=== PATIENT | female | born 1945 | race Caucasian/White ===

== ENCOUNTER → 2018-01-10 09:58 | Outpatient (CLI) | payer MEDICARE, SELFPAY ==
[2018-01-13 11:33] LABS: Total Volume 2100 mL; Urine, Metanephrine 44 mcg/24 h (90-315); Urine, Normetanephrine 355 mcg/24 h (122-676)
[2018-01-14 15:31] LABS: Total Volume: 2100 mL
== END ==
PROVIDERS: PCP Internal Medicine; Visit Provider Internal Medicine
DX: I10 Essential (primary) hypertension (principal)
CPT/HCPCS: 83835; 84585

== ENCOUNTER → 2018-01-12 12:46 | Outpatient (CLI) | payer MEDICARE, SELFPAY ==
--- NOTE | 2018-01-12 | DI.ECHO.S_ITS ---
[facility] +---------+ : : [address] : [address] : : : : [id number] : : : : Phone: [phone]+ Echocardiogram Report + + :Name: LYNN DOLAN Study Date: 01/12/2018 Height: 64 in : :[facility] Exam Location: [facility] Weight: 140 lb : : Gender: Female BSA: 1.7 m2 : :: 1945 Age: 72 yrs BP: 125/85 mmHg: :Reason For Study: Hypertension : :Ordering Physician: Dr. Garcia : :Bernie Performed By: Juju Page : + + Interpretation Summary The ejection fraction is estimated to be 60-65%. Assessment of diastolic parameters indicates a relaxation abnormality of the left ventricle, consistent with normal filling pressures. The left atrium is severely dilated. There is mild mitral regurgitation. Procedure: A two-dimensional transthoracic echocardiogram with color flow and Doppler was performed. The study quality was technically adequate. There is no prior echocardiogram noted for this patient. The patient was in normal sinus rhythm during the exam. The patient had occasional PACs during the exam. Left Ventricle: The left ventricle is normal in size. A false chord is noted (normal variant). The ejection fraction is estimated to be 60-65%. Assessment of diastolic parameters indicates a relaxation abnormality of the left ventricle, consistent with normal filling pressures. Right Ventricle: The right ventricle is normal in size and function. Atria: The left atrium is severely dilated. Right atrial size is normal. There is no Doppler evidence for an interatrial shunt. Mitral Valve: The mitral valve leaflets appear thickened, but open well. There is mild mitral valve prolapse. There is mild mitral regurgitation. The mitral regurgitant jet is posteriorly directed, which is consistent with anterior leaflet pathology. Aortic Valve: The aortic valve is trileaflet. The aortic valve opens well. No aortic regurgitation is present. Tricuspid Valve: The tricuspid valve is normal in structure and function. There is trace tricuspid regurgitation. Pulmonic Valve: The pulmonic valve is not well visualized. Great Vessels: The aortic root is normal size. The ascending aorta is mildly enlarged. The aortic arch is normal in size. The pulmonary artery is not well visualized, but is probably normal size. The IVC is of normal diameter and collapses greater than 50% with a sniff. This suggests a low right atrial pressure of 3 mm Hg. Pericardium/ Pleura There is no pericardial effusion. There is no pleural effusion. MMode/2D Measurements & Calculations LVIDd: 4.9 cm Ao root diam: 3.2 cm LVIDs: 3.3 cm asc Aorta Diam: 3.5 cm FS: 33.6 % Ao Arch Diam (Prox Trans): 2.7 cm EPSS: 0.69 cm IVSd: 0.69 cm LVPWd: 0.61 cm LV raya. diameter/BSA (cm/m^2): 2.9 LV sys. diameter/BSA (cm/m^2): 1.9 LA A2 area: 23.9 cm2 RA long axis: 4.8 cm LA A4 area: 22.1 cm2 RA area: 14.1 cm2 LA length (vol): 5.6 cm RA vol: 35.0 ml LA vol: 80.1 ml RA : 20.8 ml/m2 LA vol index: 47.6 ml/m2 IVC diam: 1.4 cm RVD1 (basal): 3.4 cm Doppler Measurements & Calculations Ao V2 max: 118.7 cm/sec LVOT Max Tang: 75.9 cm/sec Ao V2 mean: 85.8 cm/sec LV V1 max P.3 mmHg Ao max P.6 mmHg LV V1 VTI: 18.2 cm Ao mean P.2 mmHg sev ratio: 0.70 Ao V2 VTI: 26.2 cm MV E max tang: 70.0 cm/sec TR max tang: 228.7 cm/sec MV A max tang: 94.8 cm/sec TR max P.9 mmHg MV E/A: 0.74 PA V2 max: 62.9 cm/sec Med Peak E' Tang: 4.3 cm/sec PA V2 mean: 48.4 cm/sec E/E' med: 16.1 PA mean P.0 mmHg Lat Peak E' Tang: 6.5 cm/sec PA Accel Time: 0.14 sec E/E' lat: 10.8 E/e' average: 13.5 MV dec time: 0.22 sec MV P1/2t: 67.0 msec MV P1/2t max tang: 70.0 cm/sec MVA(P1/2t): 3.3 cm2 Reading Physician:03:51 PM
== END ==
PROVIDERS: PCP Internal Medicine; Visit Provider Internal Medicine
DX: I34.0 Nonrheumatic mitral (valve) insufficiency (principal); I10 Essential (primary) hypertension
CPT/HCPCS: 93306

== ENCOUNTER 2018-01-18 12:55 | Day surgery (SDC) | payer MEDICARE, SELFPAY ==
[2018-01-18] VITALS (7 sets, daily range): BP systolic 93–132; BP diastolic 61–83; PULSE 72–78; RESP 14–18; TEMP 36.1–36.5; O2SAT 93–100; BMI 24.0
[2018-01-18] MEDS: SODIUM CHLORIDE 0.9% 1,000 ML 200 ML IV (13:34)
--- NOTE | 2018-01-18 14:08 | P.HP_ITS ---
History of Present Illness Date Patient Seen: 01/18/18 Time Patient Seen: 14:06 Chief complaint: [id number] Narrative: Nay is a very pleasant 72-year-old lady who presents today for screening colonoscopy. She reports this is her 4th study and she usually has them every 5 years. She has no family history of colon cancer but she has had polyps in the past. She denies any new problems or symptoms related to the function of her GI tract. She reports that she already know she has extensive diverticulosis and that they remind her every time she has a colonoscopy. 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 ) Surgical History Anesthesia (Resolved) History of blepharoplasty (Resolved 1997) History of ear, nose, and throat (ENT) surgery (Resolved 2008) Status post dilation and curettage (Resolved) Status post tubal ligation (Resolved 1977) Family & Social History Family History: Reviewed 01/18/18 by Rox Valencia MD Social History: household members none Tobacco & Substance use: Smoking Status Never smoker Meds Home Medications Medication Instructions Recorded Confirmed Type ASPIRIN (#ASPIR 81) 81 mg PO #0 05/16/12 01/14/18 History VITAMIN D (Vitamin D3) 2,000 unit PO QDAY #0 05/16/12 01/18/18 History zolpidem 5 mg PO HS #0 05/16/12 01/18/18 History amlodipine 5 mg tablet 5 mg PO DAILY 01/14/18 01/18/18 History lorazepam 0.5 mg tablet 0.5 mg BUCCAL ONCE 01/14/18 01/18/18 History Allergies Allergy/AdvReac Type Severity Reaction Status Date / Time lisinopril [LISINOPRIL] Allergy Severe FACE Unverified 01/18/18 13:24 SWELLING Review of Systems Review of Systems All systems reviewed & are unremarkable except as noted in HPI and below Exam Vital Signs (past 8 hours): Vital Signs - 8 hr 3 01/18/18 13:18 Temperature 97.7 F Pulse Rate 77 Respiratory Rate 16 Blood Pressure 132/83 H Pulse Oximetry 96 Pulse Oximetry 96 Oxygen Delivery Method Room Air Narrative Exam Narrative: HEENT: Normocephalic and atraumatic, pupils equal round reactive to light accommodation with anicteric sclera Lungs: Clear to auscultation bilaterally Heart: Regular rate and rhythm Abdomen: Soft, nontender, active bowel sounds Extremities: Warm and well perfused Assessment & Plan Plan: Assessment/Plan Narrative: We have discussed the risks and benefits of colonoscopy and the patient expressed desire to have the procedure
--- NOTE | 2018-01-18 14:09 | SUR.OPER ---
to endo from opd via cart respirations unlabored iv patent positioned per self for procedure
--- NOTE | 2018-01-18 14:32 | SUR.OPER ---
tolerated procedure well
--- NOTE | 2018-01-18 14:33 | PM.OP.1 ---
Operative Date/Time/Diagnoses - Date of procedure: 01/18/18 Time of procedure: 14:33 Pre-op diagnosis: personal history of colon polyps Post-op diagnosis: same Procedure & Clinicians Procedure: colonoscopy to the cecum Same procedure as scheduled: Yes Indications: colonoscopy 5 years ago Surgeon: Rox Valencia Click Yes if Unassisted: Yes Anesthesia Type: Sedation ( Versed 6 mg; fentanyl 250 mcg) Operative Notes Findings: 1. Adequate prep 2. no polyps or mass lesions 3. extensive seo diverticular disease with the most concentrated disease in the descending and sigmoid regions 4. Grade 2 internal hemorrhoids Closure Type: not applicable Specimen(s): none sent Estimated Blood Loss (mL): 0 Procedure in detail: After obtaining informed consent, the patient was brought to the GI suite and placed in the left lateral decubitus position on the examination table. After placement of appropriate monitors, the patient was given incremental doses of Versed and Fentanyl until an appropriate level of sedation was achieved. A time out was held per SCOAP protocol. A digital rectal examination was performed and did not reveal any masses or obstructing lesions. The colonoscope was gently passed into the patient's anus and the entire colon navigated to the level of the cecum with minimal difficulty. Once in the cecum, the scope was withdrawn being sure to go before and beyond all mucosal folds and prominences and get an excellent examination. The findings are noted above. At the level of the rectal vault, the scope was retroflexed and the internal anal canal was examined. The scope was straightened and air aspirated from the colon. The instrument was removed from the patient's body and the procedure was concluded.The patient was allowed to awaken from sedation without difficulty and taken to the post-anesthesia care unit in good condition. Complications: none Condition: stable Disposition: PACU Plan for aftercare: 1. Discharge to home 2. Plan for next colonoscopy in 5 years or as clinically indicated c
[2018-01-18] MEDS: MIDAZOLAM 5 MG/5 ML VIAL 6 MG IV (14:37)
[2018-01-18] MEDS: fentaNYL 250 MCG/5 ML INJ IV (14:37)
== END 2018-01-18 15:30 | disposition home or self-care (01) ==
PROVIDERS: PCP Internal Medicine; Visit Provider Surgery
PROC: 0DJD8ZZ Inspection of Lower Intestinal Tract, Via Natural or Artificial Opening Endoscopic (ICD-10-PCS; CPT 45378; principal; 2018-01-18 14:00)
DX: Z12.11 Encounter for screening for malignant neoplasm of colon (principal); Z86.010 Personal history of colon polyps; K57.30 Diverticulosis of large intestine without perforation or abscess without bleeding; K64.1 Second degree hemorrhoids; I10 Essential (primary) hypertension; E78.5 Hyperlipidemia, unspecified; I48.91 Unspecified atrial fibrillation; F41.9 Anxiety disorder, unspecified
CPT/HCPCS: G0105; 99152; J2250; J3010

== ENCOUNTER → 2020-01-03 09:02 | Outpatient (CLI) | payer MEDICARE, SELFPAY ==
[2020-01-03 09:29] LABS: Aspartate Aminotransferase 31 IU/L (14-36); BUN Creatinine Ratio 22.2 (6-22); Blood Urea Nitrogen 14 mg/dL (7-17); Calcium 9.8 mg/dL (8.4-10.2); Carbon Dioxide 26 mmol/L (22-32); Chloride 105 mmol/L (98-107); Cholesterol 178 mg/dL (140-199); Estimated Glomerular Filt Rate > 60.0 mL/min (>60); Glucose 98 mg/dL (80-110); HDL Cholesterol 86 mg/dL (40-60); HEMOLYSIS < 15 (0-50); LDL Cholesterol Calculated 79 mg/dL (<100); Potassium 4.2 mmol/L (3.4-5.1); Sodium 141 mmol/L (137-145); Triglycerides 65 mg/dL (35-150)
== END ==
PROVIDERS: PCP Internal Medicine; Referring Provider Internal Medicine; Visit Provider Internal Medicine
DX: I10 Essential (primary) hypertension (principal); E78.2 Mixed hyperlipidemia
CPT/HCPCS: 36415; 80048; 80061; 84450

== ENCOUNTER → 2021-02-10 11:08 | Outpatient (CLI) | payer MEDICARE, SELFPAY ==
--- NOTE | 2021-02-10 11:09 | DI.RAD.S_ITS ---
PROCEDURE: XR DEXA AXIAL SKELETON INDICATIONS: Asymptomatic menopausal state COMPARISON: None. FINDINGS: This blank DEXA report has been sent in error by the PACS system. The correct and complete report will be forthcoming in 1-2 days. Thank you for your patience and understanding. Dictated by: Dona Covington MD, PhD on 02/10/2021 at 14:01 Approved by: Dona Covington MD, PhD on 02/10/2021 at 14:02
== END ==
PROVIDERS: PCP Internal Medicine; Referring Provider Internal Medicine; Visit Provider Internal Medicine
DX: M85.88 Other specified disorders of bone density and structure, other site (principal); Z13.820 Encounter for screening for osteoporosis; Z78.0 Asymptomatic menopausal state; Z87.891 Personal history of nicotine dependence; Z82.62 Family history of osteoporosis
CPT/HCPCS: 77080

== ENCOUNTER → 2022-06-01 12:06 | Outpatient (CLI) | payer MEDICARE, SELFPAY ==
[2022-06-01 13:50] LABS: Hematocrit 42.5 % (36-46); Hemoglobin 14.1 g/dL (12.0-16.0); Mean Corpuscular HGB Conc 33.2 % (30-36); Mean Corpuscular Hemoglobin 32.7 PG (26-34); Mean Corpuscular Volume 98.2 fL (80-100); Platelet Count 249 X10^3/uL (150-400); Red Blood Cell Count 4.32 X10^6/uL (4.0-5.2); Red Cell Distribution Width 14.1 % (11.6-14.8); White Blood Cell Count 6.3 X10^3/uL (4.5-11.0)
[2022-06-01 14:21] LABS: Alanine Aminotransferase 28 IU/L (<35); Albumin 4.4 g/dL (3.5-5.0); Albumin Globulin Ratio 1.2 (1.0-2.8); Alkaline Phosphatase 92 U/L (38-126); Aspartate Aminotransferase 36 IU/L (14-36); BUN Creatinine Ratio 21.1 (6-22); Bilirubin Total 0.4 mg/dL (0.2-1.3); Blood Urea Nitrogen 12 mg/dL (7-17); Calcium 9.4 mg/dL (8.4-10.2); Carbon Dioxide 26 mmol/L (22-32); Chloride 102 mmol/L (98-107); Cholesterol 212 mg/dL (140-199); Estimated Glomerular Filt Rate > 60 mL/min (>60); Globulin 3.7 g/dL (1.7-4.1); Glucose 105 mg/dL (80-110); HDL Cholesterol 101 mg/dL (40-60); HEMOLYSIS < 15 (0-50); LDL Cholesterol Calculated 94 mg/dL (<100); Potassium 4.6 mmol/L (3.4-5.1); Sodium 138 mmol/L (137-145); Total Protein 8.1 g/dL (6.3-8.2); Triglycerides 87 mg/dL (35-150)
[2022-06-01 14:41] LABS: TSH w/ Reflex to FT4 1.69 uIU/mL (0.47-4.68)
== END ==
PROVIDERS: PCP Internal Medicine; Referring Provider Internal Medicine; Visit Provider Internal Medicine
DX: E78.2 Mixed hyperlipidemia (principal); I10 Essential (primary) hypertension; I48.0 Paroxysmal atrial fibrillation
CPT/HCPCS: 36415; 80053; 80061; 84443; 85027

== ENCOUNTER → 2023-06-03 15:01 | Outpatient (CLI) | payer MEDICARE, SELFPAY ==
[2023-06-03 16:01] LABS: Aspartate Aminotransferase 31 IU/L (14-36); BUN Creatinine Ratio 26.4 (6-22); Blood Urea Nitrogen 14 mg/dL (7-17); Calcium 9.8 mg/dL (8.4-10.2); Carbon Dioxide 26 mmol/L (22-32); Chloride 102 mmol/L (98-107); Cholesterol 191 mg/dL (140-199); Estimated Glomerular Filt Rate > 60 mL/min (>60); Glucose 168 mg/dL (80-110); HDL Cholesterol 108 mg/dL (40-60); HEMOLYSIS < 15 (0-50); LDL Cholesterol Calculated 74 mg/dL (<100); Potassium 4.4 mmol/L (3.4-5.1); Sodium 136 mmol/L (137-145); Triglycerides 43 mg/dL (35-150)
== END ==
PROVIDERS: PCP Internal Medicine; Referring Provider Internal Medicine; Visit Provider Internal Medicine
DX: E78.2 Mixed hyperlipidemia (principal); I48.0 Paroxysmal atrial fibrillation; I10 Essential (primary) hypertension
CPT/HCPCS: 36415; 80048; 80061; 84450

== ENCOUNTER → 2023-06-07 10:52 | Outpatient (CLI) | payer MEDICARE, SELFPAY ==
[2023-06-07 11:44] LABS: Hemoglobin A1C% w Est Avg Glu 5.7 % (4.0-6.0)
[2023-06-07 11:53] LABS: Glucose 95 mg/dL (80-110)
== END ==
PROVIDERS: PCP Internal Medicine; Referring Provider Internal Medicine; Visit Provider Internal Medicine
DX: R73.01 Impaired fasting glucose (principal)
CPT/HCPCS: 36415; 82947; 83036

== ENCOUNTER → 2024-01-12 12:21 | Outpatient (CLI) | payer MEDICARE, SELFPAY ==
--- NOTE | 2024-01-12 12:23 | DI.RAD.S_ITS ---
PROCEDURE: XR CERVICAL SPINE 2V OR 3V INDICATIONS: neck pain, no trauma TECHNIQUE: 3 view(s) of the cervical spine were acquired. COMPARISON: None. FINDINGS: Bones: No fractures or dislocations to the T1 level. The lateral masses of C1 appear intact on the odontoid view. No suspicious bony lesions. Multilevel severe disc space narrowing is present throughout the cervical spine most severe from C3-4 through C7-T1. Multilevel anterior osteophytes are present most significant C5 and C6. Multilevel uncovertebral arthropathy is present. Soft tissues: No prevertebral soft tissue swelling. IMPRESSION: Prominent multilevel degenerative changes most severe at C5-6, C6-7. Dictated by: Mary Beth Lester M.D. on 01/12/2024 at 13:50 Approved by: Mary Beth Lester M.D. on 01/12/2024 at 13:51
== END ==
PROVIDERS: PCP Internal Medicine; Referring Provider Internal Medicine; Visit Provider Internal Medicine
DX: M47.812 Spondylosis without myelopathy or radiculopathy, cervical region (principal)
CPT/HCPCS: 72040

== ENCOUNTER → 2024-08-04 11:43 | Outpatient (CLI) | payer MEDICARE, SELFPAY ==
[2024-08-04 12:45] LABS: Aspartate Aminotransferase 39 IU/L (14-36); BUN Creatinine Ratio 22.2 (6-22); Blood Urea Nitrogen 16 mg/dL (7-17); Calcium 10.5 mg/dL (8.4-10.2); Carbon Dioxide 28 mmol/L (22-32); Chloride 101 mmol/L (98-107); Cholesterol 193 mg/dL (140-199); Estimated Glomerular Filt Rate > 60 mL/min (>60); Glucose 98 mg/dL (80-110); HDL Cholesterol 103 mg/dL (40-60); HEMOLYSIS < 15 (0-50); LDL Cholesterol Calculated 66 mg/dL (<100); Potassium 4.7 mmol/L (3.4-5.1); Sodium 136 mmol/L (137-145); Triglycerides 121 mg/dL (35-150)
== END ==
LOC: LAB 11:44
PROVIDERS: PCP Internal Medicine; Referring Provider Internal Medicine; Visit Provider Internal Medicine
DX: I10 Essential (primary) hypertension (principal); E78.2 Mixed hyperlipidemia; I48.0 Paroxysmal atrial fibrillation
CPT/HCPCS: 36415; 80048; 80061; 84450

== ENCOUNTER → 2024-09-22 11:41 | Outpatient (CLI) | payer MEDICARE, SELFPAY ==
--- NOTE | 2024-09-22 11:43 | DI.RAD.S_ITS ---
PROCEDURE: XR ANKLE LT MIN 3V INDICATIONS: fall, left ankle pain TECHNIQUE: 3 views of the ankle were acquired. COMPARISON: None. FINDINGS: Bones: No fractures or dislocations. Ankle mortise is normally aligned. No suspicious bony lesions. Soft tissues: Large tibiotalar joint effusion. Achilles tendon appears normal. IMPRESSION: No acute bony abnormality. Large joint effusion. Internal derangement not excluded. Dictated by: Dennis Geiger M.D. on 09/22/2024 at 12:23 Approved by: Dennis Geiger M.D. on 09/22/2024 at 12:23
== END ==
LOC: RAD 11:43
PROVIDERS: PCP Internal Medicine; Referring Provider Family Medicine; Visit Provider Family Medicine
DX: M25.572 Pain in left ankle and joints of left foot (principal); M25.472 Effusion, left ankle
CPT/HCPCS: 73610